=== PATIENT | female | born 1985 | race Caucasian/White ===

== ENCOUNTER 2019-06-17 17:27 | Emergency (ER) | payer SELFPAY ==
[~2019-06-17] VITALS: Ht 167.6 cm; Wt 59.0 kg
--- NOTE | 2019-06-17 17:50 | NUR ---
Dr Ledezma at the bedside for MSE.
[2019-06-17] MEDS ORDERED: MORPHINE SULFATE 2 MG/1 ML DISP.SYRIN IV ONE (18:15)
[2019-06-17] MEDS ORDERED: ONDANSETRON 4 MG/2 ML VIAL IV ONE (18:15)
[2019-06-17] MEDS ORDERED: IV NORMAL SALINE 1000 ML BAG IV ONE (18:15)
[2019-06-17 18:22] LABS: BASOPHILS % (AUTO) 0.4 % (0.0-2.0); EOSINOPHILS # (AUTO) 0.1 K/uL (0.0-0.7); EOSINOPHILS % (AUTO) 1.3 % (0.0-7.0); HEMATOCRIT 41.5 % (31.2-41.9); HEMOGLOBIN 13.9 g/dL (10.9-14.3); LYMPHOCYTES # (AUTO) 0.4 K/uL (20.0-40.0); LYMPHOCYTES % (AUTO) 7.7 % (20.5-51.5); MEAN CORPUSCULAR HEMOGLOBIN 31.1 uug (24.7-32.8); MEAN CORPUSCULAR HGB CONC 33 g/dL (32.3-35.6); MEAN CORPUSCULAR VOLUME 92.9 fL (75.5-95.3); MONOCYTES # (AUTO) 0.4 K/uL (2.0-10.0); MONOCYTES % (AUTO) 7.7 % (0.0-11.0); NEUTROPHILS # (AUTO) 4.2 K/uL (1.8-8.9); NEUTROPHILS % (AUTO) 82.9 % (38.5-71.5); PLATELET COUNT (AUTO) 131 K/uL (179-408); RED BLOOD CELL COUNT(AUTO) 4.47 MIL/uL (3.63-4.92); WHITE BLOOD COUNT (AUTO) 5.1 K/uL (3.8-11.8)
--- NOTE | 2019-06-17 18:25 | NUR ---
Pt singed consent for IV contrasted CT.
[2019-06-17 18:28] LABS: CREATININE 0.6 mg/dL (0.6-1.3); POTASSIUM 3.8 mmol/L (3.5-5.1)
[2019-06-17 18:33] LABS: BILIRUBIN,DIRECT 0.1 mg/dL (0.0-0.2); BILIRUBIN,TOTAL 0.4 mg/dL (0.2-1.0)
[2019-06-17] MEDS ORDERED: SWABABLE VALVE TRANSFER SET EA MC ONE (18:46)
[2019-06-17] MEDS ORDERED: IV NORMAL SALINE 250 ML IV ONE (18:46)
[2019-06-17] MEDS ORDERED: IOHEXOL 350 100 ML INFUS..BTL ONE (18:46)
[2019-06-17 19:02] LABS: THYROID STIMULATING HORMONE 0.97 mIU/mL (0.358-3.740)
--- NOTE | 2019-06-17 19:07 | NUR ---
Assumed care of patient. No acute distress noted. VSS
[2019-06-17 19:17] LABS: *BILIRUBIN,URIN NEGATIVE (NEGATIVE); *BLOOD, URINE 3+ (NEGATIVE); *CLARITY,URINE CLEAR (CLEAR); *COLOR,URINE YELLOW (YELLOW); *KETONES,URINE NEGATIVE (NEGATIVE); *UROBILINOGEN,URINE 0.2 E.U./dl (NORMAL); LEUKOCYTE ESTERASE ,URINE NEGATIVE (NEGATIVE); NITRITE, URINE NEGATIVE (NEGATIVE); UGLUCOSE NEGATIVE (NEGATIVE)
[2019-06-17 19:19] LABS: BACTERIA,URINE FEW /HPF (NONE SEEN); SQUAMOUS EPITHELIAL CELL,UR MODERATE /HPF (NONE SEEN); WBC,URINE 0-3 /HPF (0-3)
[2019-06-17 19:24] LABS: *AMPHETAMINE, URINE NEGATIVE (NEGATIVE); *BARBITURATE, URINE NEGATIVE (NEGATIVE); *CANNABINOID, URINE NEGATIVE (NEGATIVE); *COCCAINE, URINE NEGATIVE (NEGATIVE); *OPIATE, URINE NEGATIVE (NEGATIVE); *PHENCYCLIDINE SCREEN,URINE NEGATIVE (NEGATIVE)
--- NOTE | 2019-06-17 20:18 | NUR ---
Patient in bed, no acute distress noted. Patient given water per ER MD approval, well tolerated. no N/V
--- NOTE | 2019-06-17 20:43 | NUR ---
Patient discharged to home in stable conditon. Written and verbal after care instructions given. Patient verbalizes understanding of instructions. Ambulated from ER with stable gait. All belongings with patient. Patient driven home by in private vehicle. Peripheral IV removed prior to d/c.
[2019-06-17 20:44] VITALS: BP 121/80
== END 2019-06-17 20:44 | disposition home or self-care (01) ==
LOC: ER 17:30
DX: G40.909 Epilepsy, unspecified, not intractable, without status epilepticus (principal); R55 Syncope and collapse; R10.30 Lower abdominal pain, unspecified; D69.6 Thrombocytopenia, unspecified
CPT/HCPCS: 36415; 70450; 71045; 74177; 80048; 80076; 80307; 81000; 81001; 82550; 84443; 84484; 84702; 85025; 85379; 85651; 85730; 93005; 96361; 96374; 96375; 99284; J2270; J2405; Q9967; 70030-TC; A4663; J7030; J7050

== ENCOUNTER 2019-09-09 18:59 | Emergency (ER) | payer MEDICAID, OTHER ==
[~2019-09-09] VITALS: Ht 167.6 cm; Wt 59.0 kg
--- NOTE | 2019-09-09 19:24 | NUR ---
PT IS A/O X4, ABLE TO SPEEK IN COMPLETE SENTENCES , CLEAR SPEECH, NO NEURO DEFICITS NOTED. PT COMES IN WITH C/O ABD PAIN MID /LOWER 01/20 . PT STATES PAIN STARTED 09/08/19 @ 1600. PT DENIES N/V/D . LMP 08/21/19.LBM WAS 09/09/19.NO CARDIO DISTRESS NOTED,RRR.RESPIRATIONS EVEN AND UNLABORED.LUNG SOUNDS CLEAR .PT DENIES DISTRESS. PT IN BED ,SIDE RAILS UP X2, CALL LIGHT W/IN REACH, BED IN LOWEST POSITION, FALL PRECAUTIONS PER PROTOCOL.
--- NOTE | 2019-09-09 20:09 | NUR ---
US AT BEDSIDE.PT TOLERATING WELL NO ACUTE DISTRESS.
--- NOTE | 2019-09-09 20:30 | NUR ---
VIDAL RYAN AT BEDSIDE FOR PT UPDATE.
[2019-09-09] MEDS ORDERED: OXYCODONE/APAP 5-325 MG TABLET ONE (20:36)
[2019-09-09 20:39] LABS: *BILIRUBIN,URIN NEGATIVE (NEGATIVE); *BLOOD, URINE NEGATIVE (NEGATIVE); *COLOR,URINE YELLOW (YELLOW); *KETONES,URINE NEGATIVE (NEGATIVE); *URINE HCG, QUAL POSITIVE (NEGATIVE); *UROBILINOGEN,URINE 0.2 E.U./dl (NORMAL); LEUKOCYTE ESTERASE ,URINE NEGATIVE (NEGATIVE); NITRITE, URINE NEGATIVE (NEGATIVE); PH,URINE 5.5 (5.0-8.0); UGLUCOSE NEGATIVE (NEGATIVE)
[2019-09-09 20:42] LABS: *CLARITY,URINE HAZY (CLEAR); RBC,URINE 0-3 /HPF (0-3)
[2019-09-09 20:43] LABS: BACTERIA,URINE FEW /HPF (NONE SEEN); MUCUS,URINE FEW /LPF (0-FEW); SQUAMOUS EPITHELIAL CELL,UR MODERATE /HPF (NONE SEEN); WBC,URINE 0-3 /HPF (0-3)
[2019-09-09] MEDS ORDERED: HYDROMORPHONE 2 MG/1 ML DISP.SYRIN ONE (20:45)
[2019-09-09] MEDS ORDERED: OXYCODONE/APAP 5-325 MG TABLET PO ONE (20:45)
[2019-09-09] MEDS ORDERED: HYDROMORPHONE 1 MG/1 ML DISP.SYRIN IM ONE (20:45)
[2019-09-09] MEDS ORDERED: ONDANSETRON 4 MG/2 ML VIAL IM ONE (20:45)
[2019-09-09] MEDS ORDERED: ONDANSETRON 4 MG/2 ML VIAL ONE (20:46)
--- NOTE | 2019-09-09 20:51 | NUR ---
Patient discharged to home in stable conditon. Written and verbal after care instructions given. Patient verbalizes understanding of instructions.AMBULATED FROM ER W STABLE GAIT. ALL BELONGINGS W/PT.
[2019-09-09 20:54] VITALS: BP 132/82
== END 2019-09-09 20:55 | disposition home or self-care (01) ==
LOC: ER 19:04
DX: N83.292 Other ovarian cyst, left side (principal); Z60.2 Problems related to living alone
CPT/HCPCS: 76856; 84703; A4663; J1170; J2405

== ENCOUNTER 2020-11-26 12:28 | Emergency (ER) | payer MEDICAID, OTHER ==
[~2020-11-26] VITALS: Ht 165.1 cm; Wt 59.0 kg
[2020-11-26] MEDS ORDERED: ACETAMINOPHEN ES 500 MG TABLET PO ONE (13:00)
[2020-11-26] MEDS ORDERED: ACETAMINOPHEN ES 500 MG TABLET ONE ×2 (13:06→13:07)
[2020-11-26] MEDS ORDERED: HYDR-3980 PO (13:49)
[2020-11-26] MEDS ORDERED: ONDA8TAB13 PO (13:49)
[2020-11-26] MEDS ORDERED: DOCU250C14 PO (13:49)
--- NOTE | 2020-11-26 14:17 | NUR ---
Patient discharged to home in stable condition. Written and verbal after care instructions given. Patient verbalizes understanding of instructions. Stressed follow up or return to ER for worsening s/s.pt walks in steady gait.
[2020-11-26 14:18] VITALS: BP 110/77
== END 2020-11-26 14:19 | disposition home or self-care (01) ==
LOC: ER 12:28
DX: S06.0X0A Concussion without loss of consciousness, initial encounter (principal); W20.8XXA Other cause of strike by thrown, projected or falling object, initial encounter; Y93.89 Activity, other specified; Y92.512 Supermarket, store or market as the place of occurrence of the external cause; S00.83XA Contusion of other part of head, initial encounter; G40.909 Epilepsy, unspecified, not intractable, without status epilepticus
CPT/HCPCS: 70450; A4663; A9150

== ENCOUNTER 2021-02-21 20:21 | Emergency (ER) | payer MEDICAID ==
[~2021-02-21] VITALS: Ht 167.6 cm; Wt 61.2 kg
[~2021-02-21 20:21] MED LIST: DOCU250C14 PO; HYDR-3980 PO; ONDA8TAB13 PO
[2021-02-21] MEDS ORDERED: LIDOCAINE HCL 2% 20 ML VIAL IJ ONE (21:30)
[2021-02-21] MEDS ORDERED: TDAP DIPH,PERTUSS,TET VAC/PF 0.5 ML DISP.SYRIN IM ONE ×2 (21:30→21:41)
[2021-02-21] MEDS ORDERED: OXYCODONE/APAP 5-325 MG TABLET PO ONE (21:30)
[2021-02-21] MEDS ORDERED: OXYCODONE/APAP 5-325 MG TABLET ONE (21:41)
[2021-02-21] MEDS ORDERED: OXYC-128 PO (21:55)
--- NOTE | 2021-02-21 22:00 | NUR ---
DRESSING PLACED ON LEFT INDEX FINGER ORDERED.
[2021-02-21 22:08] VITALS: BP 125/77
--- NOTE | 2021-02-21 22:08 | NUR ---
Patient discharged to home in stable condition WITH FRIEND TAKING PATIENT HOME. Written and verbal after care instructions given. Patient verbalizes understanding of instructions. Stressed follow up or return to ER for worsening s/s.
== END 2021-02-21 22:08 | disposition home or self-care (01) ==
LOC: ER 20:21
DX: S61.211A Laceration without foreign body of left index finger without damage to nail, initial encounter (principal); W23.0XXA Caught, crushed, jammed, or pinched between moving objects, initial encounter; Y92.89 Other specified places as the place of occurrence of the external cause; G40.909 Epilepsy, unspecified, not intractable, without status epilepticus
CPT/HCPCS: 73140; 90715; A4663

== ENCOUNTER 2021-02-25 16:15 | Emergency (ER) | payer MEDICAID ==
[~2021-02-25] VITALS: Ht 167.6 cm; Wt 61.2 kg
[~2021-02-25 16:15] MED LIST changes: +OXYC-128 PO
[2021-02-25] MEDS ORDERED: NEOMY/BACITRA/POLYMYXIN B OINT UD PACKET TP ONE (17:03)
[2021-02-25 17:36] VITALS: BP 116/73
== END 2021-02-25 16:45 | disposition home or self-care (01) ==
LOC: ER 16:16
DX: S61.211D Laceration without foreign body of left index finger without damage to nail, subsequent encounter (principal); W45.8XXD Other foreign body or object entering through skin, subsequent encounter; G40.909 Epilepsy, unspecified, not intractable, without status epilepticus
CPT/HCPCS: A4663

== ENCOUNTER 2023-03-20 11:46 | Emergency (ER) | payer MEDICAID ==
[~2023-03-20] VITALS: Ht 167.6 cm; Wt 61.2 kg
[2023-03-20 12:52] LABS: *URINE HCG, QUAL NEGATIVE (NEGATIVE)
[2023-03-20] MEDS ORDERED: NAPR-1009 PO (14:06)
[2023-03-20] MEDS ORDERED: KETOROLAC TROMETHAMINE 30 MG INJ ONE (14:06)
[2023-03-20] MEDS ORDERED: CYCL5TAB PO (14:06)
[2023-03-20] MEDS ORDERED: ACET-73 PO (14:06)
[2023-03-20 14:13] VITALS: BP 99/60; O2SAT 100
[2023-03-20] MEDS ORDERED: KETOROLAC TROMETHAMINE 30 MG INJ IM ONE (14:15)
== END 2023-03-20 14:16 | disposition home or self-care (01) ==
LOC: ER 11:46
DX: M25.511 Pain in right shoulder (principal); M54.6 Pain in thoracic spine; Z79.899 Other long term (current) drug therapy
CPT/HCPCS: 99284; 73200; 84703; 73030; J1885; A4663